=== PATIENT | female | born 1980 | race Caucasian/White ===

== ENCOUNTER 2017-08-14 19:38 | Emergency (ER) | payer MEDICAID ==
[~2017-08-14] VITALS: Ht 167.6 cm; Wt 106.4 kg
[~2017-08-14 19:38] MED LIST: PREN1CAP13 PO
[2017-08-14 20:52] LABS: CLARITY,URINE Clear (Clear); COLOR,URINE Yellow (Yellow); GLUCOSE, URINE Negative (Neg); KETONES,URINE Negative (Neg); LEUKOCYTE ESTERASE ,URINE Negative (Neg); NITRITES, URINE Negative (Neg); OCCULT BLOOD,URINE Negative (Neg); PROTEIN,URINE Negative (Neg)
[2017-08-14 20:53] LABS: UA COLLECTION TYPE VOIDED
[2017-08-14] MEDS ORDERED: ondansetron/PF 4mg/2ml inj IV ONE (21:10)
[2017-08-14] MEDS ORDERED: morphine 4 MG/ML inj SYRINge IV ONE (21:10)
[2017-08-14 21:32] LABS: BASOPHILS % (AUTO) 0 % (0-1); EOSINOPHILS # (AUTO) 0.2 X10'3 (0-0.9); EOSINOPHILS % (AUTO) 1.7 % (0-6); HEMATOCRIT 40.1 % (35.0-45.0); HEMOGLOBIN 14.3 g/dl (12.0-16.0); LYMPHOCYTES # (AUTO) 0.7 X10'3 (1.1-4.8); MEAN CORPUSCULAR HEMOGLOBIN 32.7 PG (27.0-31.0); MEAN CORPUSCULAR HGB CONC 35.7 % (33.0-36.5); MEAN CORPUSCULAR VOLUME 91.6 FL (78-98); MEAN PLATELET VOLUME 7.5 FL (7.4-10.4); MONOCYTES # (AUTO) 0.4 X10'3 (0-0.9); MONOCYTES % (AUTO) 3.9 % (2-12); NEUTROPHILS % (AUTO) 87.4 % (42-75); PLATELET COUNT 241 X10'3 (140-440); RED BLOOD COUNT 4.38 X10'6 (4.20-5.60); RED CELL DISTRIBUTION WIDTH 13.1 % (11.5-14.5); WHITE BLOOD COUNT 10.3 X10'3 (4.5-11.0)
[2017-08-14 21:39] LABS: PROTHROMBIN TIME 10.7 SECONDS (9.0-12.0)
[2017-08-14 21:42] LABS: URINE AMPHETAMINE SCREEN NEGATIVE (Neg); URINE BARBITUATE SCREEN NEGATIVE (Neg); URINE BENZODIAZEPINES SCREEN NEGATIVE (Neg); URINE CANNABINOID SCREEN NEGATIVE (Neg); URINE COCAINE SCREEN NEGATIVE (Neg); URINE METHADONE SCREEN NEGATIVE (Neg); URINE OPIATE SCREEN NEGATIVE (Neg); URINE PHENCYCLIDINE SCREEN NEGATIVE (Neg)
[2017-08-14] MEDS ORDERED: morphine 2 MG/ML inj. syringe ONE (21:42)
[2017-08-14 21:44] LABS: ALANINE AMINOTRANSFERASE 19 U/L (12-78); ALBUMIN 3.6 G/DL (3.4-5.0); ALBUMIN/GLOBULIN RATIO 0.9 (1.1-1.5); ALKALINE PHOSPHATASE 82 IU/L (46-116); ANION GAP 11 (8-16); ASPARTATE AMINO TRANSFERASE 14 U/L (10-37); BILIRUBIN,TOTAL 0.4 MG/DL (0.1-1.0); BLOOD UREA NITROGEN 15 MG/DL (7-18); CALCIUM 8.8 MG/DL (8.5-10.1); CHLORIDE 103 MMOL/L (99-107); CREATININE 1.15 MG/DL (0.40-0.90); GLUCOSE 112 MG/DL (70-104); POTASSIUM 3.9 MMOL/L (3.5-5.1); SODIUM 141 MMOL/L (135-145); TOTAL CARBON DIOXIDE 27.2 MMOL/L (24-32); TOTAL PROTEIN 7.4 G/DL (6.4-8.2); eGFR 54 ML/MIN
[2017-08-14] MEDS ORDERED: LIDOcaine Viscous 15ml cup MM PRN (22:50)
[2017-08-14] MEDS ORDERED: pantoprazole 40 MG vial IV ONE (22:50)
[2017-08-14] MEDS ORDERED: mag hydrox/Alum hydrox/simeth 30ml oral suspension PO ONE (22:50)
[2017-08-14] MEDS ORDERED: PANT-47 PO (23:39)
[2017-08-14 23:50] VITALS: BP 111/50
== END 2017-08-15 00:02 | disposition home or self-care (01) ==
LOC: ER 19:39
DX: R10.9 Unspecified abdominal pain (principal); R11.0 Nausea; R50.9 Fever, unspecified; Z91.040 Latex allergy status; Z79.899 Other long term (current) drug therapy
CPT/HCPCS: 36415; 74176; 80053; 80305; 81003; 85025; 85610; 96374; 96375; 99285; C9113; J2270; J2405

== ENCOUNTER 2018-09-24 21:47 | Emergency (ER) | payer MEDICAID ==
[~2018-09-24] VITALS: Ht 170.2 cm; Wt 113.5 kg
[~2018-09-24 21:47] MED LIST changes: +PANT-47 PO
[2018-09-24] MEDS ORDERED: normal saline 1000ML IV soln IVB ONE (21:55)
[2018-09-24 22:24] LABS: BASOPHILS % (AUTO) 0.2 % (0-1); EOSINOPHILS # (AUTO) 0.1 X10'3 (0-0.9); EOSINOPHILS % (AUTO) 0.8 % (0-6); HEMATOCRIT 41.2 % (35.0-45.0); HEMOGLOBIN 13.9 g/dl (12.0-16.0); LYMPHOCYTES # (AUTO) 0.8 X10'3 (1.1-4.8); LYMPHOCYTES % (AUTO) 5.5 % (21-51); MEAN CORPUSCULAR HEMOGLOBIN 30.5 PG (27.0-31.0); MEAN CORPUSCULAR HGB CONC 33.7 g/dL (33.0-36.5); MEAN CORPUSCULAR VOLUME 90.5 FL (78-98); MEAN PLATELET VOLUME 7.7 FL (7.4-10.4); MONOCYTES # (AUTO) 0.6 X10'3 (0-0.9); MONOCYTES % (AUTO) 3.9 % (2-12); NEUTROPHILS # (AUTO) 13.2 X10'3 (1.8-7.7); NEUTROPHILS % (AUTO) 89.6 % (42-75); PLATELET COUNT 247 X10'3 (140-440); RED BLOOD COUNT 4.55 X10'6 (4.20-5.60); RED CELL DISTRIBUTION WIDTH 13.6 % (11.5-14.5); WHITE BLOOD COUNT 14.8 X10'3 (4.5-11.0)
[2018-09-24 22:34] LABS: ALANINE AMINOTRANSFERASE 187 U/L (12-78); ALBUMIN 3.3 G/DL (3.4-5.0); ALBUMIN/GLOBULIN RATIO 0.9 (1.1-1.5); ALKALINE PHOSPHATASE 148 IU/L (46-116); ANION GAP 10 (8-16); ASPARTATE AMINO TRANSFERASE 316 U/L (10-37); BILIRUBIN,TOTAL 1.9 MG/DL (0.1-1.0); BLOOD UREA NITROGEN 16 MG/DL (7-18); BUN/CREATININE RATIO 15.4 (6.6-38.0); CALCIUM 8.5 MG/DL (8.5-10.1); CHLORIDE 103 MMOL/L (99-107); CREATININE 1.04 MG/DL (0.40-0.90); GLUCOSE 98 MG/DL (70-104); POTASSIUM 3.8 MMOL/L (3.5-5.1); SODIUM 137 MMOL/L (135-145); TOTAL CARBON DIOXIDE 24.1 MMOL/L (24-32); TOTAL PROTEIN 7.1 G/DL (6.4-8.2); eGFR 60 ML/MIN
[2018-09-24] MEDS ORDERED: morphine 4 MG/ML inj SYRINge IV PRN (22:55)
[2018-09-24] MEDS ORDERED: ondansetron/PF 4mg/2ml inj IV ONE (22:55)
[2018-09-24 23:51] VITALS: BP_DIAS 88
[2018-09-25] MEDS ORDERED: ketorolac trometh inj. 60 MG/2 ML VIAL IM ONE
[2018-09-25] MEDS ORDERED: ondansetron 4mg rapidly disintigrating tab PO ONE
[2018-09-25] MEDS ORDERED: ketorolac trometh. 30mg/ml inj. IV ONE (00:10)
--- NOTE | 2018-09-25 00:13 | NUR ---
US CALLED WILL BE ABOUT 30 MORE MINUTES.
[2018-09-25] MEDS ORDERED: ONDA4TAB6 PO (00:38)
[2018-09-25] MEDS ORDERED: TAM75C PO (00:38)
[2018-09-25] MEDS ORDERED: normal saline 1000ML IV soln IVB ONE (00:40)
[2018-09-25] MEDS ORDERED: ipratropium/albuterol 3ml nebule NEB ONE (00:40)
[2018-09-25] MEDS ORDERED: ALBU6.7H INH (00:41)
[2018-09-25 02:58] VITALS: BP_SYST 56
== END 2018-09-25 02:59 | disposition home or self-care (01) ==
LOC: ER 21:47
DX: B34.9 Viral infection, unspecified (principal); R10.10 Upper abdominal pain, unspecified; R10.84 Generalized abdominal pain; F17.200 Nicotine dependence, unspecified, uncomplicated; Z91.040 Latex allergy status; Z79.899 Other long term (current) drug therapy
CPT/HCPCS: 36415; 71046; 76700; 80053; 85025; 94640; 94760; 96374; 96375; 99284; J1885; J2405; J7030

== ENCOUNTER 2018-11-03 17:26 | Emergency (ER) | payer MEDICAID ==
[~2018-11-03] VITALS: Ht 167.6 cm; Wt 120.9 kg
[~2018-11-03 17:26] MED LIST changes: +ALBU6.7H INH; +ONDA4TAB6 PO
[2018-11-03] MEDS ORDERED: predniSONE 20 mg tablet PO ONE (18:40)
[2018-11-03] MEDS ORDERED: ipratropium/albuterol 3ml nebule NEB ONE (18:40)
[2018-11-03 19:05] LABS: BASOPHILS # (AUTO) 0.1 X10'3 (0-0.2); BASOPHILS % (AUTO) 0.5 % (0-1); EOSINOPHILS # (AUTO) 0.2 X10'3 (0-0.9); EOSINOPHILS % (AUTO) 1.1 % (0-6); HEMATOCRIT 40.6 % (35.0-45.0); HEMOGLOBIN 13.9 g/dl (12.0-16.0); LYMPHOCYTES # (AUTO) 1.8 X10'3 (1.1-4.8); LYMPHOCYTES % (AUTO) 11.2 % (21-51); MEAN CORPUSCULAR HEMOGLOBIN 31.3 PG (27.0-31.0); MEAN CORPUSCULAR HGB CONC 34.3 g/dL (33.0-36.5); MEAN CORPUSCULAR VOLUME 91.2 FL (78-98); MEAN PLATELET VOLUME 8.2 FL (7.4-10.4); MONOCYTES # (AUTO) 0.8 X10'3 (0-0.9); MONOCYTES % (AUTO) 5.3 % (2-12); NEUTROPHILS # (AUTO) 13.1 X10'3 (1.8-7.7); NEUTROPHILS % (AUTO) 81.9 % (42-75); PLATELET COUNT 316 X10'3 (140-440); RED BLOOD COUNT 4.45 X10'6 (4.20-5.60); RED CELL DISTRIBUTION WIDTH 13.8 % (11.5-14.5)
[2018-11-03 19:22] LABS: ALANINE AMINOTRANSFERASE 36 U/L (12-78); ALBUMIN 3.7 G/DL (3.4-5.0); ALBUMIN/GLOBULIN RATIO 0.9 (1.1-1.5); ALKALINE PHOSPHATASE 108 IU/L (46-116); ANION GAP 8 (8-16); ASPARTATE AMINO TRANSFERASE 19 U/L (10-37); BILIRUBIN,TOTAL 0.3 MG/DL (0.1-1.0); BLOOD UREA NITROGEN 14 MG/DL (7-18); BUN/CREATININE RATIO 12.8 (6.6-38.0); CHLORIDE 101 MMOL/L (99-107); CREATININE 1.09 MG/DL (0.40-0.90); GLUCOSE 84 MG/DL (70-104); POTASSIUM 4.2 MMOL/L (3.5-5.1); SODIUM 137 MMOL/L (135-145); TOTAL CARBON DIOXIDE 27.6 MMOL/L (24-32); TOTAL PROTEIN 7.9 G/DL (6.4-8.2); eGFR 57 ML/MIN
[2018-11-03 19:41] VITALS: BP 126/75
[2018-11-03] MEDS ORDERED: PRED20TA PO (20:00)
[2018-11-03] MEDS ORDERED: DOXY100C2 PO (20:00)
[2018-11-03] MEDS ORDERED: ALBU18HF2 INH (20:00)
[2018-11-03] MEDS ORDERED: acetaminophen 325mg tablet PO ONE (20:10)
[2018-11-03] MEDS ORDERED: guaiFENesin/DM 10ml UD oral syrup PO ONE (20:10)
[2018-11-03] MEDS ORDERED: guaiFENesin/codeine phos 10ml UD oral syrup PO ONE (20:10)
== END 2018-11-03 20:28 | disposition home or self-care (01) ==
LOC: ER 17:27
DX: J20.9 Acute bronchitis, unspecified (principal); Z91.040 Latex allergy status; Z79.899 Other long term (current) drug therapy; Z87.891 Personal history of nicotine dependence
CPT/HCPCS: 36415; 71045; 80053; 85025; 87502; 87503; 94640; 94760; 99284; J7512